=== PATIENT | male | born 1995 | race Caucasian/White ===

== ENCOUNTER 2020-06-10 12:13 | Emergency (ER) | payer OTHER ==
[2020-06-10] MEDS ORDERED: DIPH/PERTUSS(ACELL)/TETANUS VAC/PF 0.5 ML SYR (>=10YO) IM ONE (12:57)
[2020-06-10] MEDS ORDERED: DOXYCYCLINE HYCLATE 100 MG TABLET PO ONE (12:58)
--- NOTE | 2020-06-10 12:59 | ER Document Report ---
ED Medical Screen (RME) - General Chief Complaint: Arm Injury Stated Complaint: FOREIGN OBJECT IN RIGHT ARM Time Seen by Provider: 06/10/20 12:55 Mode of Arrival: Ambulatory Information source: Patient Notes: 23-year-old male presents to ED for 2 fishhooks to the right elbow 1 on the lateral side 1 to the back of the elbow. 1 of them he is cut off very short and one is the whole hook is there. He is alert oriented respirations regular nonlabored speaking in full sentences. He will need a tetanus immunization and I have ordered him some doxycycline at this time. He will need these 2 hooks removed. I have greeted and performed a rapid initial assessment of this patient. A comprehensive ED assessment and evaluation of the patient, analysis of test results and completion of medical decision making process will be conducted by an additional ED providers. - Related Data Allergies/Adverse Reactions: No Known Allergies Allergy (Verified 06/10/20 12:45) Past Medical History - Social History Frequency of alcohol use: Occasional Drug Abuse: None Physical Exam - Vital signs Vitals: Temp Pulse Resp BP Pulse Ox 97.6 F 59 L 20 120/64 98 06/10/20 12:25 06/10/20 12:25 06/10/20 12:25 06/10/20 12:25 06/10/20 12:25 Course - Vital Signs Vital signs: Temp Pulse Resp BP Pulse Ox 97.6 F 59 L 20 120/64 98 06/10/20 12:25 06/10/20 12:25 06/10/20 12:25 06/10/20 12:25 06/10/20 12:25
--- NOTE | 2020-06-10 13:30 | RADIOLOGY REPORT (SQ) ---
EXAM DESCRIPTION: ELBOW RIGHT OVER 2 VIEWS IMAGES COMPLETED DATE/TIME: 06/10/2020 1:18 pm REASON FOR STUDY: Multiple fishhooks COMPARISON: None. NUMBER OF VIEWS: Four views. TECHNIQUE: AP, lateral, and both oblique radiographic images acquired of the right elbow. LIMITATIONS: None. FINDINGS: MINERALIZATION: Normal. BONES: No acute fracture or dislocation. JOINT: No effusion. SOFT TISSUES: A radiopaque foreign body in the shape of a fish hook is noted at the dorsal soft tissu es along the proximal ulna. A 7 mm radiopaque foreign body suggestive of a fragment of a fish hook i s noted at the soft tissues adjacent to the proximal radius. IMPRESSION: No radiographic evidence for acute fracture at the right elbow. Fish hook at the dorsal soft tissues along the proximal ulna. Additional fragment of a fish hook at the soft tissues adjacent to the proximal radius. TECHNICAL DOCUMENTATION: JOB ID: [id number] [employer]- All Rights Reserved Reading location - IP/workstation name: [email or web address]
[2020-06-10] MEDS ORDERED: LIDOCAINE 1% INJ (10 MG/ML) 10 ML MDV INJ ONE (14:53)
--- NOTE | 2020-06-10 14:59 | ER Document Report ---
ED Foreign Body - General Chief Complaint: Arm Injury Stated Complaint: FOREIGN OBJECT IN RIGHT ARM Time Seen by Provider: 06/10/20 12:55 Mode of Arrival: Ambulatory Information source: Patient Notes: 24-year-old male with no previous medical problems presents to the emergency room with 2 fishhooks in his right arm. 1 by his elbow 1 to the right mid forearm. States his fishing line got caught around a tree when he went to release it and flung back catching him in his right forearm. Patient is right- handed. No other concerns. TRAVEL OUTSIDE OF THE [place] IN LAST 30 DAYS: No - Related Data Allergies/Adverse Reactions: No Known Allergies Allergy (Verified 06/10/20 12:45) Past Medical History - General Information source: Patient - Social History Smoking Status: Never Smoker Frequency of alcohol use: Occasional Drug Abuse: None Family History: Reviewed & Not Pertinent Review of Systems - Review of Systems Constitutional: No symptoms reported Cardiovascular: No symptoms reported Respiratory: No symptoms reported Musculoskeletal: No symptoms reported Skin: Other - Foreign body right arm x2 Neurological/Psychological: No symptoms reported -: Yes All other systems reviewed and negative Physical Exam - Vital signs Vitals: Temp Pulse Resp BP Pulse Ox 97.6 F 59 L 20 120/64 98 06/10/20 12:25 06/10/20 12:25 06/10/20 12:25 06/10/20 12:25 06/10/20 12:25 - General General appearance: Appears well, Alert In distress: Mild - Respiratory Respiratory status: No respiratory distress Chest status: Nontender Breath sounds: Normal Chest palpation: Normal - Cardiovascular Rhythm: Bradycardia Heart sounds: Normal auscultation Murmur: No - Extremities General upper extremity: Normal inspection, Nontender, Normal color, Normal ROM, Normal temperature General lower extremity: Normal inspection, Nontender, Normal color, Normal ROM, Normal temperature, Normal weight bearing. No: Luis's sign Elbow: Other - Twining embedded into the right lateral aspect of the elbow. Forearm: Other - Tip of fernando from fishhook in right mid forearm. - Neurological Neuro grossly intact: Yes Cognition: Normal Orientation: AAOx4 Efe Coma Scale Eye Opening: Spontaneous [place] Coma Scale Verbal: Oriented Efe Coma Scale Motor: Obeys Commands Efe Coma Scale Total: 15 Speech: Normal Motor strength normal: LUE, RUE, LLE, RLE Sensory: Normal Notes: Positive right radial pulse. Capillary refill less than 3 seconds. Neurovascularly intact - Skin Skin Temperature: Warm Skin Moisture: Dry Skin Color: Normal Skin irregularity: other - Foreign body x2 Location of irregularity: Extremities Course - Re-evaluation Re-evalutation: 06/10/20 14:56 Patient with partial fish hook fernando in the right mid forearm as well as fishhook to the right elbow. Tetanus was updated. Started on doxycycline. Will attempt to remove fishhooks with use of Kellys and wire cutters. 06/10/20 15:50 Fishhooks removed as documented in procedure note. Patient tolerated well. Was counseled on proper wound care. Antibiotics as prescribed. Tetanus was updated. Patient was given strict return to the emergency room guidelines. Return for any new or worsening symptoms. All questions were answered. Patient verbalized understanding and agrees with plan of care. - Vital Signs Vital signs: Temp Pulse Resp BP Pulse Ox 97.7 F 65 16 117/67 100 06/10/20 15:52 06/10/20 15:52 06/10/20 15:52 06/10/20 15:52 06/10/20 15:52 - Diagnostic Test Radiology reviewed: Reports reviewed Procedures - Additional Procedures foreign body Time performed: 15:40 Notes: 06/10/20 15:35 Instilled 1 cc of 1% lidocaine into the right forearm and right elbow. Was able to push partial fishhook through right mid forearm and removed without difficulty. Twining in the right elbow able to push through to skin cut off fernando with wire cutters and removed remaining fishhook without difficulty. Patient tolerated procedure well. Discharge - Discharge Clinical Impression: Fish hook injury of right upper arm Condition: Stable Disposition: HOME, SELF-CARE Instructions: Removal of Subcutaneous Foreign Object ([facility]) Additional Instructions: Clean wound areas twice a day with soap and warm water. Take antibiotics as prescribed. Return to emergency room for any new or worsening symptoms. Prescriptions: Doxycycline Monohydrate 100 mg PO BID #20 capsule
[2020-06-10 15:54] VITALS: BP 117/67
== END 2020-06-10 15:52 | disposition home or self-care (01) ==
LOC: ER 12:13
DX: Z23 Encounter for immunization (principal); S40.851A Superficial foreign body of right upper arm, initial encounter; W22.8XXA Striking against or struck by other objects, initial encounter
CPT/HCPCS: 90471; 90715; 99283